=== PATIENT | male | born 1990 | race Hispanic/Latino ===

== ENCOUNTER 2023-09-27 16:54 | Emergency (ER) | payer OTHER ==
[~2023-09-27] VITALS: Ht 180.3 cm; Wt 71.7 kg
[2023-09-27 16:58] VITALS: BP 116/69; PULSE 68; RESP 16
[2023-09-27] MEDS ORDERED: BETA45CR3 TP (17:30)
[2023-09-27] MEDS ORDERED: HYDR-3421 PO (17:30)
== END 2023-09-27 18:26 | disposition home or self-care (01) ==
LOC: EDH 16:54
DX: L25.9 Unspecified contact dermatitis, unspecified cause (principal); J45.909 Unspecified asthma, uncomplicated; Z88.6 Allergy status to analgesic agent

== ENCOUNTER 2023-12-06 13:38 | Emergency (ER) | payer BC, OTHER ==
[~2023-12-06] VITALS: Ht 180.3 cm; Wt 73.5 kg
[~2023-12-06 13:38] MED LIST: BETA45CR3 TP; HYDR-3421 PO
[2023-12-06] MEDS: METHOCARBAMOL 500 MG TABLET PO STA (14:17)
[2023-12-06] MEDS: LIDOCAINE 4% ADH..PATCH TP STA (14:17)
[2023-12-06] MEDS: HYDROCODONE/ACETAMINOPHEN 5/325 MG TAB PO STA (14:17)
[2023-12-06] MEDS: DEXAMETHASONE SOD PHOSPHATE 4 MG/ML 1ML VIAL IVP STA (14:17)
[2023-12-06 14:49] VITALS: BP 110/68; PULSE 74; RESP 16; O2SAT 99
[2023-12-06] MEDS ORDERED: METH100054 PO (15:16)
== END 2023-12-06 15:30 | disposition home or self-care (01) ==
LOC: EDH 13:38
DX: M62.830 Muscle spasm of back (principal); M54.50 Low back pain, unspecified; J45.909 Unspecified asthma, uncomplicated; Z88.6 Allergy status to analgesic agent; Z79.899 Other long term (current) drug therapy
CPT/HCPCS: 99284; 96374; J1100

== ENCOUNTER 2023-12-21 14:59 | Emergency (ER) | payer BC ==
[~2023-12-21] VITALS: Ht 180.3 cm; Wt 72.6 kg
[~2023-12-21 14:59] MED LIST changes: +METH100054 PO
[2023-12-21] MEDS: AZITHROMYCIN 250 MG TABLET PO ONE (16:08)
[2023-12-21] MEDS: ONDANSETRON ODT 4MG TAB SL ONE (16:08)
[2023-12-21] MEDS: CEFTRIAXONE 1G VIAL IM ONE (16:08)
[2023-12-21 16:19] VITALS: BP 131/60; PULSE 71; RESP 20; O2SAT 98
== END 2023-12-21 16:52 | disposition home or self-care (01) ==
LOC: EDH 14:59
DX: S31.30XA Unspecified open wound of scrotum and testes, initial encounter (principal); N48.5 Ulcer of penis; X58.XXXA Exposure to other specified factors, initial encounter; Y93.89 Activity, other specified; Y92.89 Other specified places as the place of occurrence of the external cause; Y99.8 Other external cause status; J45.909 Unspecified asthma, uncomplicated; Z79.899 Other long term (current) drug therapy; Z88.6 Allergy status to analgesic agent
CPT/HCPCS: 99284; 87491; 87591; 96372; J0696

== ENCOUNTER 2023-12-26 14:06 | Emergency (ER) | payer BC ==
[~2023-12-26] VITALS: Ht 180.3 cm; Wt 73.5 kg
[2023-12-26 14:37] VITALS: BP 125/87; PULSE 67; RESP 18; O2SAT 99
[2023-12-26] MEDS: ACETAMINOPHEN 500 MG TABLET PO ONE (14:47)
== END 2023-12-26 14:54 | disposition home or self-care (01) ==
LOC: EDH 14:06
DX: F10.129 Alcohol abuse with intoxication, unspecified (principal); J45.909 Unspecified asthma, uncomplicated; Z88.6 Allergy status to analgesic agent; Z79.899 Other long term (current) drug therapy; Y90.9 Presence of alcohol in blood, level not specified
CPT/HCPCS: 99282

== ENCOUNTER 2024-02-12 01:39 | Emergency (ER) | payer BC ==
[~2024-02-12] VITALS: Ht 180.3 cm; Wt 78.0 kg
[2024-02-12 01:59] LABS: APPEARANCE,URINE CLEAR (CLEAR); BILIRUBIN,URINE NEGATIVE (NEGATIVE); COLOR,URINE YELLOW (YELLOW); GLUCOSE, URINE (UA) NEGATIVE (NEGATIVE); KETONES,URINE NEGATIVE (NEGATIVE); LEUKOCYTE ESTERASE ,URINE 25 Leu/uL (NEGATIVE); NITRATE,URINE NEGATIVE (NEGATIVE); OCCULT BLOOD,URINE NEGATIVE (NEGATIVE); PROTEIN,URINE 10 mg/dL (NEGATIVE); UROBILINOGEN,URINE 3 mg/dL (0.2-1.0)
[2024-02-12 02:17] LABS: ADD UA MICROSCOPIC YES
[2024-02-12 02:18] LABS: BACTERIA,URINE None Seen /HPF (None Seen); RBC,URINE 0-1 /HPF (0-1); SQUAMOUS EPITHELIAL CELL,UR Rare /HPF (0-2)
[2024-02-12] MEDS: AZITHROMYCIN 250 MG TABLET PO ONE (02:32)
[2024-02-12] MEDS: cefTRIAXone 1G VIAL IM ONE (02:32)
[2024-02-12 03:03] VITALS: BP 133/72; PULSE 63; RESP 18; TEMP 98; O2SAT 99
== END 2024-02-12 03:03 | disposition home or self-care (01) ==
LOC: EDH 01:39
DX: A64 Unspecified sexually transmitted disease (principal); J45.909 Unspecified asthma, uncomplicated; Z79.899 Other long term (current) drug therapy; Z88.6 Allergy status to analgesic agent
CPT/HCPCS: 99284; 87086; 87491; 87591; 81001; 96372; J0696

== ENCOUNTER 2024-08-23 13:34 | Emergency (ER) | payer BC ==
[~2024-08-23] VITALS: Ht 180.3 cm; Wt 73.5 kg
[~2024-08-23 13:34] MED LIST changes: +OSEL75 PO
--- NOTE | 2024-08-23 14:38 | NUR ---
spoke with radiology/phlebotomy and called pt in lobby twice over last 15 min will call pt in lobby one additional time then pt to be documented eloped meds to be returned to med room should pt not be located
--- NOTE | 2024-08-23 14:53 | NUR ---
pt returned to er lobby at this time had left for food
[2024-08-23] MEDS: Solu-medROL 125MG VIAL IVP ONE (15:06)
[2024-08-23 15:14] LABS: BASOPHILS # (AUTO) 0.06 K/uL (0.00-0.20); EOSINOPHILS # (AUTO) 0.47 K/uL (0.00-0.70); EOSINOPHILS % (AUTO) 7.8 % (0.0-8.0); HEMATOCRIT 41.9 % (42-54); IMMATURE GRANULOCYTE ABSOLUTE 0.02 K/uL (0-1); LYMPHOCYTES # (AUTO) 1.3 K/uL (1.0-4.8); LYMPHOCYTES % (AUTO) 22.3 % (21.0-51.0); MEAN CORPUSCULAR HEMOGLOBIN 30.5 pg (27.0-33.0); MEAN CORPUSCULAR HGB CONC 33.9 g/dL (32.0-36.0); MEAN CORPUSCULAR VOLUME 90.1 fL (79-99); MONOCYTES # (AUTO) 0.4 K/uL (0.1-1.0); MONOCYTES % (AUTO) 6.8 % (3.0-13.0); NEUTROPHILS # (AUTO) 3.7 K/uL (1.8-7.7); NEUTROPHILS % (AUTO) 61.8 % (40.0-77.0); PLATELET COUNT (AUTO) 134 K/uL (130-400); RED BLOOD CELL COUNT(AUTO) 4.65 MIL/uL (4.50-6.20); RED CELL DISTRIBUTION WIDTH 12.9 % (11.0-15.5)
[2024-08-23 15:20] LABS: CREATININE 1.1 mg/dL (0.5-1.3); POTASSIUM 3.5 mmol/L (3.5-5.1)
[2024-08-23] MEDS: IpraTROPium/alBUTERol SULFATE 3 ML SOLUTION IH ONE (15:26)
[2024-08-23 15:27] VITALS: PULSE 78; RESP 18
--- NOTE | 2024-08-23 15:36 | NUR ---
post neb treatment bilat lung sounds clear
[2024-08-23 15:40] LABS: COVID19 (SARS ANTIGEN RAPID) PRESUMPTIVE NEGATIVE (NEGATIVE); INFLUENZA TYPE A Negative For Type A (NEGATIVE); INFLUENZA TYPE B Negative For Type B (NEGATIVE)
--- NOTE | 2024-08-23 15:40 | HMCIMG ---
CHEST 1VW HISTORY: Shortness of breath COMPARISON: None FINDINGS: A frontal projection of the chest was obtained. No acute pulmonary infiltrates is seen. The heart is normal in size. Prominent interstitial markings are seen. No evidence of aortic calcification is seen. IMPRESSION: 1. No acute pulmonary infiltrate is seen. Prominent interstitial markings.
[2024-08-23] MEDS ORDERED: ALBUHFA IH (15:49)
--- NOTE | 2024-08-23 15:50 | ERN ---
ED Note History of Present Illness Stated Complaint: ASTHMA Chief Complaint: Adult-Asthma Time Seen by MD: 13:35 Time Seen by Midlevel: 13:35 Dictation: The patient is a 33-year-old male with a history of asthma who presents to the emergency department with complaints of shortness of breath onset a week ago. Patient denies any fevers or cough. Reports he ran out of his inhaler at home. Has not follow up with a his doctor. Allergies: Coded Allergies: aspirin (Unverified Allergy, Unknown, 09/27/23) Home Meds Active Scripts Albuterol Sulfate (Ventolin Hfa/Proventil Hfa/Proair Hfa) 90 Mcg Puff, 1-2 PUFF IH Q4H PRN for SHORTNESS OF BREATH for 5 Days, #1 INH 0 Refills PHARMACY TO DISPENSE 1 INHALER FOR USE Prov:NAOMI HENDRICKS SIGNAL TOWER DIRECTOR 08/23/24 Oseltamivir Phosphate (Tamiflu) 75 Mg Cap, 75 MG PO BID for 5 Days, #10 CAP Prov:ADRIANNE LINO 06/04/24 Methocarbamol (Methocarbamol) 1,000 Mg Tablet, 1000 MG PO QIDP PRN for MUSCLE SPASMS for 3 Days, #18 TAB Prov:JOHNATHAN OAKLEY ROOF PAINTER 12/06/23 Hydroxyzine HCl (Hydroxyzine HCl) 25 Mg Tablet, 25 MG PO BID for 5 Days, #10 TAB Prov:GENTRY CARVER 09/27/23 Betamethasone Dipropionate (Betamethasone Dipropionate) 0.05 % Cream.gm., 1 APPL TP TID for 10 Days, #5 G Prov:GENTRY CARVER 09/27/23 Past Medical History Past Medical History: Asthma Surgical History: None RN Note Reviewed/Agreed w/PFSH: Yes Review of System Dictation Constitutional: Negative for fever,chills, and weight loss Eyes: Negative for injury, pain,redness, and discharge ENT: Negative for injury,pain or swelling Cardiovascular: Negative for chest pain, palpitations, and edema Respiratory: Negative for , cough,. Positive for shortness of breath, wheezing Abdomen/GI: Negative for abdominal pain, nausea, vomiting, diarrhea, and constipation Back: Negative for injury and pain : Negative for injury, bleeding and discharge MS/Extremity: Negative for injury and deformity Skin: Negative for rash, and discoloration Neuro: Negative for headache, weakness, numbness, tingling, and seizure Psych: Negative for suicide ideation, homicidal ideation, and hallucinations Initial Vital Sign VS Vital Signs Date Time Temp Pulse Resp B/P (MAP) Pulse Ox O2 Delivery O2 Flow Rate FiO2 08/23/24 13:38 97.5 66 16 115/65 98 Room Air 08/23/24 15:09 0 21 Physical Exam Dictation Vital Signs reviewed General Appearance: Alert, oriented x 3, no acute distress, well developed, nourished. Head and Face: non-traumatic. Eyes: PERRL, pink conjunctivas, eyelid no trauma, anterior chamber with arcus senilis. Ears: Pinnas intact and no signs of trauma or erythema ear canals clear and no discharge TM no erythema Nose: No discharge, no bleeding. Oropharynx: Mouth normal, tongue pink. pharynx clear,no erythema, tonsils no exudates, no abscesses noted, mucous membrane moist Neck: Supple, non-tender, no thyromegaly, no masses, no JVD, no bruits Breast:Deferred Chest:No tenderness, no crepitus, no paradoxical movement, no retractions Lungs:Clear, well-ventilated, symmetric, no rales, no wheezing, no rhonchi, no stridor, good breath sounds bilaterally Heart: Regular rate, regular rhythm, no murmur, no gallops Vascular: no peripheral edema, Abdomen: Soft, positive bowel sounds, nondistended, no guarding, nontender, no rebound, no masses no hepatomegaly, no splenomegaly, no Russ's sign, no hernias. Rectal: Deferred Genital: Deferred Neurological: Normal speech, motor function intact, sensory function intact Musculoskeletal: Neck nontender, full range of motion, back nontender, full range of motion, Extremities: nontender, full range of motion Skin: Color pink, dry, no turgor, no rash, no lacerations, no abrasions, no contusions. Lymphatic: Deferred Results (Laboratory/Radiology) Laboratory/Radiology Laboratory Tests Test 08/23/24 15:03 08/23/24 15:15 White Blood Count 6.0 K/uL (4.8-10.8) Red Blood Count 4.65 MIL/uL (4.50-6.20) Hemoglobin 14.2 g/dL (14.0-18.0) Hematocrit 41.9 % (42-54) L Mean Corpuscular Volume 90.1 fL (79-99) Mean Corpuscular Hemoglobin 30.5 pg (27.0-33.0) Mean Corpuscular Hemoglobin Concent 33.9 g/dL (32.0-36.0) Red Cell Distribution Width 12.9 % (11.0-15.5) Platelet Count 134 K/uL (130-400) Mean Platelet Volume 14.2 fL (7.5-10.5) H Immature Granulocyte % (Auto) 0.3 % (0-1) Neutrophils (%) (Auto) 61.8 % (40.0-77.0) Lymphocytes (%) (Auto) 22.3 % (21.0-51.0) Monocytes (%) (Auto) 6.8 % (3.0-13.0) Eosinophils (%) (Auto) 7.8 % (0.0-8.0) Basophils (%) (Auto) 1.0 % (0.0-5.0) Neutrophils # (Auto) 3.7 K/uL (1.8-7.7) Lymphocytes # (Auto) 1.3 K/uL (1.0-4.8) Monocytes # (Auto) 0.4 K/uL (0.1-1.0) Eosinophils # (Auto) 0.47 K/uL (0.00-0.70) Basophils # (Auto) 0.06 K/uL (0.00-0.20) Absolute Immature Granulocyte (auto 0.02 K/uL (0-1) Nucleated Red Blood Cells 0.0 % (0.0-0.19) Sodium Level 138 mmol/L (136-145) Potassium Level 3.5 mmol/L (3.5-5.1) Chloride Level 102 mmol/L (101-111) Carbon Dioxide Level 33 mmol/L (21-32) H Blood Urea Nitrogen 18 mg/dL (7-18) Creatinine 1.1 mg/dL (0.5-1.3) Glomerular Filtration Rate Calc 91 mL/min (>90) Random Glucose 90 mg/dL (70-105) Total Calcium 8.9 mg/dL (8.5-10.1) Influenza Type A Antigen Negative For Type A Influenza Type B Antigen Negative For Type B SARS-CoV-2 Antigen (Rapid) PRESUMPTIVE NEGATIVE Labs Reviewed?: Yes ED Course ED Course Orders Procedure Category Date Status Time Cbc With Differential LAB 08/23/24 Complete 13:47 Chest 1vw RAD 08/23/24 Resulted 13:47 Basic Metabolic Panel LAB 08/23/24 Complete 13:47 Methylprednisolone PHA 08/23/24 Complete Succ 125mg (Solu-Medr 14:00 Ipratropium/Albuterol PHA 08/23/24 Complete Neb (Duoneb) 14:00 Covid19 (Sars Antigen LAB 08/23/24 Complete Rapid) 13:47 Influenza Type A & B, LAB 08/23/24 Complete Rapid 13:47 Current Medications Medications (Trade) Dose Ordered Sig/Vernon Route PRN Reason Start Time Stop Time Status Last Admin Dose Admin Albuterol (DUOneb) 1 UDVIAL ONCE ONCE IH 08/23/24 14:00 08/23/24 14:01 DC 08/23/24 15:26 Methylprednisolone Sodium Succinate (Solu-medROL 125MG) 125 mg ONCE ONCE IVP 08/23/24 14:00 08/23/24 14:01 DC 08/23/24 15:06 Vital Signs Date Time Temp Pulse Resp B/P (MAP) Pulse Ox O2 Delivery O2 Flow Rate FiO2 08/23/24 16:27 98.2 66 16 115/60 98 Room Air* 0 21 08/23/24 15:27 78 18 08/23/24 15:09 98.1 65 16 115/60 98 Room Air* 0 21 08/23/24 13:38 97.5 66 16 115/65 98 Room Air Medical Decision Making MDM The patient is a 33-year-old male with a history of asthma who presents to the emergency department with complaints of shortness of breath onset a week ago. Patient denies any fevers or cough. Reports he ran out of his inhaler at home. Has not follow up with a his doctor. CBC showed no leukocytosis, no anemia, chemistry showed no electrolyte imbalance, chest x-ray showed no acute pathology. Patient with clear lung sounds , nontoxic appearance, nonlabored respiration will be discharged to follow up with primary doctor Differential diagnosis: Pneumonia, upper respiratory infection, pneumothorax, asthma exacerbation Need for hospitalization: Patient does not meet criteria for hospitalization. There are no social concerns with this patient. DX & DISP Disposition: Discharge Departure Impression: Primary Impression: Asthma exacerbation Condition: Stable Scripts Albuterol Sulfate (Ventolin Hfa/Proventil Hfa/Proair Hfa) 90 Mcg Puff 1-2 PUFF IH Q4H PRN for SHORTNESS OF BREATH for 5 Days, #1 INH 0 Refills PHARMACY TO DISPENSE 1 INHALER FOR USE Prov: NAOMI HENDRICKS 08/23/24 Additional Instructions: Is follow up with the primary doctor in 1-2 days. Please return to ER if symptoms worsen. FOLLOW-UP WITH PRIMARY CARE PROVIDER IN 1 TO 2 DAYS. TAKE MEDICATIONS DIRECTED HERE IN THE EMERGENCY ROOM. OKAY TO CONTINUE HOME MEDICATIONS UNLESS OTHERWISE DISCUSSED DURING YOUR VISIT IN THE EMERGENCY ROOM TODAY. RETURN TO YOUR NEAREST EMERGENCY ROOM IF SYMPTOMS WORSEN OR IF THERE IS NO IMPROVEMENT. CALL 911 IF YOU NEED IMMEDIATE ASSISTANCE. TAKE TYLENOL OR MOTRIN [id number] NEEDED AND IF NO CONTRAINDICATIONS ARE PRESENT. INCREASE ORAL HYDRATION. A WOUND CULTURE OR URINE CULTURE WAS ORDERED HERE IN THE EMERGENCY ROOM DEPARTMENT PLEASE FOLLOW-UP WITH PRIMARY CARE PROVIDER AND ADVISE THEM TO GET REPEAT PORTS FROM OUR FACILITY. IF YOU HAD ANY GINGER WRAP/SPLINTS THAT WERE APPLIED HERE, PLEASE DO NOT REMOVE THEM UNTIL YOU SEE YOUR PRIMARY CARE OR SPECIALTY. Referrals: YOLANDA PALACIO DO (PCP) Time of Disposition: 15:49 I have reviewed the case, and I agree with, Diagnosis and Plan I performed the substantive portion of the visit. I have reviewed and personally made and approve the management plan that is documented in the notes by myself or the MARIANNE. I acknowledge full responsibility for the patient's management plan. NAOMI HENDRICKS Aug 23, 2024 15:50 ZURDO MONDRAGON MD Aug 23, 2024 18:54
[2024-08-23 16:27] VITALS: BP 115/60; PULSE 66; RESP 16; TEMP 98.3; O2SAT 98
== END 2024-08-23 16:31 | disposition home or self-care (01) ==
LOC: EEVIPCON 13:34 → EDH 13:34
DX: J45.901 Unspecified asthma with (acute) exacerbation (principal); Z20.822 Contact with and (suspected) exposure to COVID-19; Z88.6 Allergy status to analgesic agent; Z79.899 Other long term (current) drug therapy
CPT/HCPCS: 99284; 96374; 71045; 87426; 80048; 85025; 87804 ×2; 36415; 94640; J2919

== ENCOUNTER 2025-04-19 11:30 | Emergency (ER) | payer BC ==
[~2025-04-19] VITALS: Ht 180.3 cm; Wt 76.7 kg
[~2025-04-19 11:30] MED LIST changes: +ALBUHFA IH
[2025-04-19] MEDS ORDERED: ALBUHFA IH (11:40)
[2025-04-19] MEDS ORDERED: METH4TAB3 PO (11:40)
--- NOTE | 2025-04-19 11:41 | ERN ---
ED Note History of Present Illness Stated Complaint: ASTHMA EXACERBATION Chief Complaint: Cough Time Seen by MD: 11:35 Dictation: PATIENT IS A 34-YEAR-OLD MALE COMING IN TODAY WITH COMPLAINTS OF HAVING HISTORY OF ASTHMA WITH SHORTNESS A BREATH INTERMITTENTLY FOR THE LAST TWO WEEKS. NO FEVER NO CHILLS NO NAUSEA VOMITING NO DIARRHEA. NO LOSS OF TASTE OR SMELL AND NO COVID SYMPTOMS. HE DOES NOT HAVE A PRIMARY CARE DOCTOR IN [place], STATES HE NORMALLY JUST GOES AND GETS ALBUTEROL INHALERS. SATURATIONS 98-100% IN TRIAGE, BILATERAL BREATH SOUNDS ARE CLEAR ON AUSCULTATION NO WHEEZING NO TACHYPNEA Allergies: Coded Allergies: aspirin (Unverified Allergy, Unknown, 09/27/23) Home Meds Active Scripts Albuterol Sulfate (Ventolin Hfa/Proventil Hfa/Proair Hfa) 90 Mcg Puff, 1-2 PUFF IH Q4H PRN for SHORTNESS OF BREATH for 5 Days, #1 INH 0 Refills PHARMACY TO DISPENSE 1 INHALER FOR USE Prov:NAOMI HENDRICKS HEALTH DIAGNOSTICS TEACHER 08/23/24 Oseltamivir Phosphate (Tamiflu) 75 Mg Cap, 75 MG PO BID for 5 Days, #10 CAP Prov:ADRIANNE LINO PAC 06/04/24 Methocarbamol (Methocarbamol) 1,000 Mg Tablet, 1000 MG PO QIDP PRN for MUSCLE SPASMS for 3 Days, #18 TAB Prov:JOHNATHAN OAKLEY ARMED CUSTOM PROTECTION OFFICER 12/06/23 Hydroxyzine HCl (Hydroxyzine HCl) 25 Mg Tablet, 25 MG PO BID for 5 Days, #10 TAB Prov:GENTRY CARVER 09/27/23 Betamethasone Dipropionate (Betamethasone Dipropionate) 0.05 % Cream.gm., 1 APPL TP TID for 10 Days, #5 G Prov:GENTRY CARVER 09/27/23 Past Medical History Past Medical History: Asthma Surgical History: None RN Note Reviewed/Agreed w/PFSH: Yes Review of System Dictation CONSTITUTIONAL: NEGATIVE EXCEPT FOR HPI HEAD/FACE: NEGATIVE EXCEPT FOR HPI EENT: NEGATIVE EXCEPT FOR HPI RESPIRATORY: NEGATIVE EXCEPT FOR HPI SOB/INTERMITTENT WHEEZING GASTROINTESTINAL/ABDOMINAL: NEGATIVE EXCEPT FOR HPI GENITOURINARY: NEGATIVE EXCEPT FOR HPI MUSCULOSKELETAL: NEGATIVE EXCEPT FOR HPI INTEGUMENTARY: NEGATIVE EXCEPT FOR HPI NEUROLOGICAL/PSYCH: NEGATIVE EXCEPT FOR HPI HEMATOLOGIC/LYMPHATIC: NEGATIVE EXCEPT FOR HPI ALL SYSTEMS NEGATIVE, EXCEPT NOTED ABOVE. 13 POINT REVIEW OF SYSTEMS ASSESSED AND ALL NEGATIVE EXCEPT FOR ABOVE. Physical Exam Dictation VITAL SIGNS REVIEWED GENERAL APPEARANCE: ALERT, ORIENTED X 3, NO ACUTE DISTRESS, WELL DEVELOPED, NOURISHED. NO ACUTE DISTRESS HEAD AND FACE: NON-TRAUMATIC. EYES: PERRL, PINK CONJUNCTIVAS, EYELID NO TRAUMA, ANTERIOR CHAMBER WITH ARCUS SENILIS. EARS: PINNAS INTACT AND NO SIGNS OF TRAUMA OR ERYTHEMA EAR CANALS CLEAR AND NO DISCHARGE TM NO ERYTHEMA NOSE: NO DISCHARGE, NO BLEEDING. OROPHARYNX: MOUTH NORMAL, TONGUE PINK, PHARYNX CLEAR,NO ERYTHEMA, TONSILS NO EXUDATES, NO ABSCESSES NOTED, MUCOUS MEMBRANE MOIST NECK: SUPPLE, NON-TENDER, NO THYROMEGALY, NO MASSES, NO JVD, NO BRUITS BREAST:DEFERRED CHEST:NO TENDERNESS, NO CREPITUS, NO PARADOXICAL MOVEMENT, NO RETRACTIONS LUNGS:CLEAR, WELL-VENTILATED, SYMMETRIC, NO RALES, NO WHEEZING, NO RHONCHI, NO STRIDOR, GOOD BREATH SOUNDS BILATERALLY NO TACHYPNEA NO WHEEZING NO RETRACTIONS HEART: REGULAR RATE, REGULAR RHYTHM, NO MURMUR, NO GALLOPS VASCULAR: NO PERIPHERAL EDEMA, ABDOMEN: SOFT, POSITIVE BOWEL SOUNDS, NONDISTENDED, NO GUARDING, NONTENDER, NO REBOUND, NO MASSES NO HEPATOMEGALY, NO SPLENOMEGALY, NO CALHOUN'S SIGN, NO HERNIAS. RECTAL: DEFERRED GENITAL: DEFERRED NEUROLOGICAL: NORMAL SPEECH, MOTOR FUNCTION INTACT, SENSORY FUNCTION INTACT MUSCULOSKELETAL: NECK NONTENDER, FULL RANGE OF MOTION, BACK NONTENDER, FULL RANGE OF MOTION, EXTREMITIES: NONTENDER, FULL RANGE OF MOTION SKIN: COLOR PINK, DRY, NO TURGOR, NO RASH, NO LACERATIONS, NO ABRASIONS, NO CONTUSIONS. LYMPHATIC: DEFERRED Results (Laboratory/Radiology) Labs Reviewed?: Yes ED Course ED Course 1135/NO LABS OR IMAGING INDICATED. WE WILL WRITE FOR MEDROL DOSEPAK AND ALBUTEROL GIVEN A LIST OF PRIMARY CARE DOCTOR Medical Decision Making MDM MEDICAL DISCHARGE MAKING BASED ON EMPIRIC TREATMENT AND REFILL OF ALBUTEROL INHALER WITH MEDROL DOSEPAK PATIENT HAD NO RESPIRATORY DISTRESS NO EXPIRATORY WHEEZING NO PRIMARY CARE DOCTOR. SATURATING 98-100% ON ROOM AIR IN TRIAGE DX & DISP Disposition: Discharge Departure Impression: Primary Impression: History of asthma Additional Impression: Encounter for medication refill Condition: Stable Scripts Methylprednisolone (Medrol) 4 Mg Tab.ds.pk 1 TAB PO AD for 6 Days, #21 TAB 0 Refills 6 on day 1 then reduce by one tablet daily until gone Prov: LIZZIE PRATHER 04/19/25 Albuterol Sulfate (Ventolin Hfa/Proventil Hfa/Proair Hfa) 90 Mcg Puff 2 PUFF IH Q4H for WHEEZING, #1 INHALER 0 Refills Prov: LIZZIE PRATHER 04/19/25 Additional Instructions: FOLLOW-UP WITH PRIMARY CARE PROVIDER IN 1 TO 2 DAYS. TAKE MEDICATIONS DIRECTED HERE IN THE EMERGENCY ROOM. OKAY TO CONTINUE HOME MEDICATIONS UNLESS OTHERWISE DISCUSSED DURING YOUR VISIT IN THE EMERGENCY ROOM TODAY. RETURN TO YOUR NEAREST EMERGENCY ROOM IF SYMPTOMS WORSEN OR IF THERE IS NO IMPROVEMENT. CALL 911 IF YOU NEED IMMEDIATE ASSISTANCE. TAKE TYLENOL OR MOTRIN [id number] NEEDED AND IF NO CONTRAINDICATIONS ARE PRESENT. INCREASE ORAL HYDRATION. A WOUND CULTURE OR URINE CULTURE WAS ORDERED HERE IN THE EMERGENCY ROOM DEPARTMENT PLEASE FOLLOW-UP WITH PRIMARY CARE PROVIDER AND ADVISE THEM TO GET REPEAT PORTS FROM OUR FACILITY. IF YOU HAD ANY GINGER WRAP/SPLINTS THAT WERE APPLIED HERE, PLEASE DO NOT REMOVE THEM UNTIL YOU SEE YOUR PRIMARY CARE OR SPECIALTY. TAKE MEDROL DOSEPAK DIRECTED UNTIL GONE. USE ALBUTEROL INHALER DIRECTED. FOLLOW UP WITH ONE OF THE DOCTORS ON THE LIST PROVIDED YOU IN THE NEXT 1-2 DAYS FOR MANAGEMENT OF YOUR ASTHMA Referrals: YOLANDA PALACIO DO (PCP) Time of Disposition: 11:40 I have reviewed the case, and I agree with, Diagnosis and Plan LIZZIE PRATHER Apr 19, 2025 11:41
[2025-04-19 11:46] VITALS: BP 122/76; PULSE 72; RESP 16; TEMP 98; O2SAT 99
== END 2025-04-19 11:55 | disposition home or self-care (01) ==
LOC: EDH 11:30
DX: J45.901 Unspecified asthma with (acute) exacerbation (principal); Z76.0 Encounter for issue of repeat prescription; Z88.6 Allergy status to analgesic agent
CPT/HCPCS: 99282